=== PATIENT | female | born 1990 | race Caucasian/White ===

== ENCOUNTER → 2017-12-20 20:01 | Outpatient (CLI) | payer OTHER, SELFPAY ==
[2017-12-20 20:53] LABS: HCG Quantitative /Beta subunit < 2.39 mIU/mL
== END ==
PROVIDERS: Family Provider Physician Assistant; PCP Physician Assistant; Visit Provider Physician Assistant
DX: R11.0 Nausea (principal)
CPT/HCPCS: 84702

== ENCOUNTER → 2019-06-21 10:50 | Outpatient (CLI) | payer OTHER, SELFPAY ==
[2019-06-21 11:28] LABS: Influenza A - CEPHEID Flu A NEGATIVE (NEGATIVE); Influenza B - CEPHEID Flu B NEGATIVE (NEGATIVE)
== END ==
LOC: LAB 10:51
PROVIDERS: Family Provider Physician Assistant; PCP Physician Assistant; Visit Provider Physician Assistant
DX: R05 Cough (principal)
CPT/HCPCS: 87502

== ENCOUNTER → 2020-05-13 15:55 | Outpatient (CLI) | payer OTHER, SELFPAY ==
[2020-05-13 16:52] LABS: Influenza A - CEPHEID Flu A NEGATIVE (NEGATIVE); Influenza B - CEPHEID Flu B NEGATIVE (NEGATIVE)
[2020-05-13 18:17] LABS: COVID19 -Nasal RAPID Negative (Negative)
== END ==
PROVIDERS: Family Provider Physician Assistant; PCP Physician Assistant; Visit Provider Physician Assistant
DX: Z20.822 Contact with and (suspected) exposure to COVID-19 (principal); J02.9 Acute pharyngitis, unspecified
CPT/HCPCS: 87070; 87502; 87635

== ENCOUNTER → 2021-04-28 09:31 | Outpatient (CLI) | payer OTHER, SELFPAY ==
[2021-04-28 12:58] LABS: COVID19 -Nasal RAPID Negative (Negative)
== END ==
PROVIDERS: Family Provider Physician Assistant; PCP Physician Assistant; Visit Provider Physician Assistant
DX: Z20.822 Contact with and (suspected) exposure to COVID-19 (principal); J02.9 Acute pharyngitis, unspecified
CPT/HCPCS: 87635

== ENCOUNTER 2021-06-19 00:16 | Emergency (ER) | payer OTHER, SELFPAY ==
[2021-06-19 00:22] VITALS: BP 151/98; PULSE 92; RESP 18; TEMP 36.6; O2SAT 97; BMI 35.6
--- NOTE | 2021-06-19 02:07 | ED_ITS ---
HPI - Wound/Laceration General Chief Complaint: Wound/Laceration Stated Complaint: dog bite right thigh Time Seen by Provider: 06/19/21 02:05 Source: patient Mode of arrival: Ambulatory History of Present Illness HPI narrative: Patient is a 30-year-old female who presents with dog bite to right thigh. She states she was out walking [place] when got bit by a stray dog. She said she was not previously interacting with it. She has significant bites to the right thigh no numbness tingling or weakness but having lots of pain. Her tetanus is not up-to-date. Related Data Home Medications Medication Instructions Recorded Confirmed multivitamin 1 tab PO DAILY 02/11/18 05/13/20 Previous Rx's Medication Instructions Recorded ondansetron 4 mg disintegrating 4 mg PO Q6-8H PRN #30 tab 06/21/19 tablet amoxicillin 875 mg-potassium 1 tab PO Q12H #14 tab 06/19/21 clavulanate 125 mg tablet (Augmentin) hydrocodone 5 mg-acetaminophen 325 1 tab PO Q6H PRN #10 tab 06/19/21 mg tablet Allergies Allergy/AdvReac Type Severity Reaction Status Date / Time ketorolac [From Toradol] AdvReac Intermediate nausea, Verified 06/19/21 00:27 dizzy Review of Systems Review of Systems Narrative: GENERAL: Denies chills,fever HEENT: Denies throat pain RESPIRATORY: Denies dyspnea, cough, wheezing CARDIOVASCULAR: Denies chest pain, palpitations GASTROINTESTINAL: Denies nausea, vomiting MUSCULOSKELETAL: Denies extremity pain, injury SKIN: See HPI NEUROLOGIC: Denies weakness, dizziness, headache, numbness 8 point review of systems is negative except for those stated above and HPI Patient History Medical History (Updated 06/19/21 @ 03:01 by Honey Guerra DO) Pharyngitis Social History Smoking Status: Current every day smoker Smoking Status: Current every day smoker alcohol intake frequency: a few times a week Substance Use Type: marijuana Exam Initial Vital Signs Initial Vital Signs: Vital Signs Temperature 98 F 06/19/21 00:22 Pulse Rate 92 H 06/19/21 00:22 Respiratory Rate 18 06/19/21 00:22 Blood Pressure 151/98 H 06/19/21 00:22 Pulse Oximetry 97 06/19/21 00:22 GENERAL: Well-appearing, well-nourished and in no acute distress. CARDIOVASCULAR: peripheral pulses in tact, cap refill <2 sec RESPIRATORY: No respiratory distress, speaks in full sentences without difficulty EXTREMITIES: Normal range of motion, no clubbing or edema. Neurovascularly intact NEUROLOGICAL: Cranial nerves II through XII grossly intact. Normal gait and speech. SKIN: Multiple puncture wounds on right medial thigh. The largest 4cm with 2 cm gap right medial, the 2nd largest 1cm anterior thigh also with large gap Procedures Laceration Repair Laceration 1: Site: lower extremity Side (If applicable): right Size (cm): 4 Description: linear and contaminated (dog bite) Depth: simple, single layer Local Anesthetic: lidocaine 1% Amount of anesthesia used (mL): 5 Pre-repair: wound explored, irrigated extensively and deep structures intact Skin layer closed with: nylon Size (cm): 4-0 Number of sutures: 3 Laceration 2: Site: lower extremity Side (If applicable): right Size (cm): 2 Description: linear Depth: simple, single layer Local Anesthetic: lidocaine 1% Amount of anesthesia used (mL): 3 Pre-repair: wound explored, irrigated extensively and deep structures intact Skin layer closed with: nylon Size (cm): 4-0 Number of sutures: 1 Technique: simple, interrupted Course Orders Ordered: Discontinued Medications Hydrocodone Bitart/Acetaminophen (Hydrocodone/Acet 5/325 Tablet) 1 tab PO NOW ONE Stop: 06/19/21 02:16 Last Admin: 06/19/21 02:24 Dose: 1 tab Documented by: ROCKY Amoxicillin/Clavulanate Potassium (Amoxicillin/Clav 875/125 Mg) 1 tab PO NOW ONE Stop: 06/19/21 03:02 Last Admin: 06/19/21 03:24 Dose: 1 tab Documented by: ROCKY Diphtheria/Tetanus/Acell Pertussis (Tet,Diph,Pertuss(Acell),Vac/Pf 0.5 Ml Syringe) 0.5 ml IM .ONCE ONE Stop: 06/19/21 02:19 Last Admin: 06/19/21 03:25 Dose: 0.5 ml Documented by: ROCKY Lidocaine HCl (Lidocaine 1% (Pf) 5 Ml) 6 ml SUBCUT NOW ONE Stop: 06/19/21 02:16 Last Admin: 06/19/21 03:35 Dose: 6 ml Documented by: SUZIE Vital Signs Vital signs: Vital Signs - 8 hr 06/19/21 00:22 06/19/21 03:11 Temperature 98 F 98.5 F Pulse Rate 92 H 98 H Respiratory Rate 18 19 Blood Pressure 151/98 H 128/79 Pulse Oximetry 97 99 MDM - Wound/Laceration MDM Narrative Medical decision making narrative: Patient has multiple puncture wounds 1 with quite allergic cap they are sutured and loosely irrigated and she is started on antibiotics Discharge Plan Departure Patient Disposition: Home Clinical Impression: Dog bite Instructions: DI for Animal Bites Activity Restrictions/Additional Instructions: *You have been diagnosed with dog bite *What to do: Expect to have swelling and pain for about 1-2 weeks. Elevate and ice as needed. Use crutches if needed. Please monitor very carefully for any worsening infection. Sutures will need to be removed in about 5-7 days. They replaced loosely. *Continue to take medications as directed Augmentin 875 mg twice a day for 10 days [place] 1 tablet every 6 hours if needed for severe pain Aleve/naproxen 500 mg every 12 hours OR ibuprofen/Motrin 600 mg every 6 hours if needed for [id number] pain *Follow up with your primary care provider in 2-3 days or call [phone] *Return to ER if you should have increasing pain redness numbness tingling fever or any new, worsening or concerning symptoms CONTROLLED SUBSTANCE DISCHARGE (Narcotoic/benzodiazepine/Flexeril/Phenergan) 1. You have been prescribed narcotic medications, it does have acetaminophen/Tylenol/paracetamol in it, DO NOT TAKE MORE THAN 4,00mg in 24 hours of Tylenol. TRAMADOL DOES NOT CONTAIN TYLENOL 2. Please understand that we cannot provide further refills of narcotics, benzodiazepines or controlled substances through the ED and her pain management will need to be through your provider. 3. While on these medications you cannot drive or operate heavy machinery. 4. You cannot sign legal documents or perform any duties such as this. 5. As long as you're taking opiate pain medications he should also be taking a stool softener such as Colace, Dulcolax, MiraLAX or prune juice, to help avoid constipation. Prescriptions: New hydrocodone-acetaminophen 5-325 mg tablet 1 tab PO Q6H PRN (Reason: pain) Qty: 10 0RF amoxicillin-pot clavulanate [Augmentin] 875-125 mg tablet 1 tab PO Q12H Qty: 14 0RF No Action ondansetron 4 mg tablet,disintegrating 4 mg PO Q6-8H PRN (Reason: nausea and vomiting) Qty: 30 0RF multivitamin tablet,chewable 1 tab PO DAILY 0RF Referrals: Мария Kaplan PA-C [Primary Care Provider] - Stand Alone Forms: Work Release Note
[2021-06-19] MEDS: HYDROCODONE/ACET 5/325 TABLET 1 TAB PO (02:24)
[2021-06-19 03:11] VITALS: BP 128/79; PULSE 98; RESP 19; TEMP 36.9; O2SAT 99
[2021-06-19] MEDS: AMOXICILLIN/CLAV 875/125 MG 1 TAB PO (03:24)
[2021-06-19] MEDS: TET,DIPH,PERTUSS(ACELL),VAC/PF 0.5 ML SYRINGE IM (03:25)
[2021-06-19] MEDS: LIDOCAINE 1% (PF) 5 ML 6 ML SUBCUT (03:35)
== END 2021-06-19 03:30 | disposition home or self-care (01) ==
PROVIDERS: Emergency Provider Emergency Medicine; Family Provider Physician Assistant; PCP Physician Assistant
DX: S71.151A Open bite, right thigh, initial encounter (principal); F17.200 Nicotine dependence, unspecified, uncomplicated; W54.0XXA Bitten by dog, initial encounter; Y93.01 Activity, walking, marching and hiking; Z23 Encounter for immunization
CPT/HCPCS: 12002; 90471; 99282; 99284; 90715

== ENCOUNTER 2023-05-13 09:38 | Emergency (ER) | payer OTHER, SELFPAY ==
[2023-05-13 09:41] VITALS: BP 155/97; PULSE 79; RESP 17; TEMP 36.9; O2SAT 95; BMI 40.2
--- NOTE | 2023-05-13 10:09 | PC.NURSE ---
Pt denies loss bowel/bladder. Pt was moving a bench yesterday and shortly after began having left lower back pain. Pt ambulatory,difficulty changing position due to pain.
--- NOTE | 2023-05-13 10:35 | ED.BACK ---
HPI - Back Pain/Injury General Chief Complaint: Back Pain/Injury Stated Complaint: Low back pain Time Seen by Provider: 05/13/23 10:00 Source: patient History of Present Illness HPI Narrative: 32-year-old female presents for 1 day of left-sided lumbar back pain. Patient was lifting boxes and thinks that she may have strained her back. No position is comfortable. Took Motrin once prior to arrival without significant improvement in pain. Denies bowel or bladder incontinence, denies saddle anesthesia. Related Data Home Medications Medication Instructions Recorded Confirmed multivitamin 1 tab PO DAILY 02/11/18 05/13/20 Previous Rx's Medication Instructions Recorded ondansetron 4 mg disintegrating 4 mg PO Q6-8H PRN nausea and 06/21/19 tablet vomiting #30 tabs amoxicillin 875 mg-potassium 1 tab PO Q12H #14 tabs 06/19/21 clavulanate 125 mg tablet (Augmentin) hydrocodone 5 mg-acetaminophen 325 1 tab PO Q6H PRN pain #10 tabs 06/19/21 mg tablet methocarbamol 500 mg tablet 500 mg PO TID #30 tabs 05/13/23 methocarbamol 500 mg tablet 500 mg PO TID #30 tabs 05/13/23 methylprednisolone 4 mg tablets in See Rx Instructions PO .COMPLEX 05/13/23 a dose pack (Medrol ([place])) #21 ea methylprednisolone 4 mg tablets in See Rx Instructions PO .COMPLEX 05/13/23 a dose pack (Medrol ([place])) #21 ea Allergies Allergy/AdvReac Type Severity Reaction Status Date / Time No Known Drug Allergies Allergy Verified 05/13/23 10:39 Review of Systems Review of Systems Narrative: Negative except as noted above Patient History Medical History (Updated 05/13/23 @ 11:45 by Rosy Curran MD) Pharyngitis Social History Smoking Status: Current every day smoker Smoking Status: Current every day smoker tobacco type: vaping alcohol intake frequency: a few times a month Substance Use Type: marijuana Exam Initial Vital Signs Initial Vital Signs: Vital Signs Temperature 98.4 F 05/13/23 09:41 Pulse Rate 79 05/13/23 09:41 Respiratory Rate 17 05/13/23 09:41 Blood Pressure 155/97 H 05/13/23 09:41 Pulse Oximetry 95 05/13/23 09:41 Oxygen Delivery Method Room Air 05/13/23 09:41 Const: Awake, alert, tearful Cardiac: regular rate, regular rhythm RESP: unlabored, clear bilaterally, no wheezing GI: Atraumatic, soft, nontender, nondistended, no rebound, no guarding MSK back: No midline tenderness, left paraspinal tenderness to deep palpation Skin: Warm, Dry, intact, no rashes Neuro: AO x3, CN II-XII grossly intact, moves all extremities, gait normal Psych: affect normal, mood normal, not suicidal, not homicidal Course Orders Ordered: Discontinued Medications Acetaminophen (Acetaminophen 325 Mg Tablet) 975 mg PO NOW ONE Stop: 05/13/23 10:35 Last Admin: 05/13/23 10:40 Dose: 975 mg Documented By: UMESH Dexamethasone (Dexamethasone 10 Mg/Ml Vial) 10 mg IM NOW ONE Stop: 05/13/23 10:35 Last Admin: 05/13/23 10:40 Dose: 10 mg Documented By: UMESH Ketorolac Tromethamine (Ketorolac 30 Mg/Ml Vial) 30 mg IM NOW ONE Stop: 05/13/23 10:35 Last Admin: 05/13/23 10:40 Dose: 30 mg Documented By: UMESH Lidocaine (Lidocaine 5% Patch) 1 each TOP NOW ONE Stop: 05/13/23 10:35 Last Admin: 05/13/23 10:40 Dose: 1 each Documented By: UMESH Methocarbamol (Methocarbamol 500 Mg Tablet) 1,000 mg PO NOW ONE Stop: 05/13/23 10:35 Last Admin: 05/13/23 10:40 Dose: 1,000 mg Documented By: UMESH Vital Signs Vital signs: Vital Signs - 8 hr 05/13/23 09:41 05/13/23 11:03 Temperature 98.4 F Pulse Rate 79 73 Respiratory Rate 17 16 Blood Pressure 155/97 H 138/84 Pulse Oximetry 95 96 Oxygen Delivery Method Room Air Room Air MDM - Back Pain/Injury MDM Narrative Medical decision making narrative: Uncomfortable but nontoxic patient presenting for lumbar back pain after lifting. No signs or symptoms of cauda equina, no midline tenderness, no indication for imaging. Patient was given nonnarcotic medications with moderate improvement in pain. Patient was counseled on back care tips, anticipated course of recovery for lumbar back strain. Nonnarcotic pain medication sent to pharmacy of choice. PCP follow up advised Discharge Plan Departure Patient Disposition: Home Clinical Impression: Back spasm Instructions: DI for Back Spasm Activity Restrictions/Additional Instructions: Alternate tylenol and motrin every 3-4 hours as needed for pain. Use gentle stretching exercises for additional pain relief. Use the medications as directed. Follow up with your primary care physician Prescriptions: New methocarbamol 500 mg tablet 500 mg PO TID Qty: 30 0RF methylprednisolone [Medrol ([place])] 4 mg tablets,dose pack See Rx Instructions .ROUTE .COMPLEX Qty: 21 0RF Rx Instructions: orally per package directions methocarbamol 500 mg tablet 500 mg PO TID Qty: 30 0RF methylprednisolone [Medrol ([place])] 4 mg tablets,dose pack See Rx Instructions .ROUTE .COMPLEX Qty: 21 0RF Rx Instructions: orally per package directions No Action ondansetron 4 mg tablet,disintegrating 4 mg PO Q6-8H PRN (Reason: nausea and vomiting) Qty: 30 0RF multivitamin tablet,chewable 1 tab PO DAILY hydrocodone-acetaminophen 5-325 mg tablet 1 tab PO Q6H PRN (Reason: pain) Qty: 10 0RF amoxicillin-pot clavulanate [Augmentin] 875-125 mg tablet 1 tab PO Q12H Qty: 14 0RF Referrals: Мария Kaplan PA-C [Primary Care Provider] - Stand Alone Forms: Patient Portal/API
[2023-05-13] MEDS: DEXAMETHASONE 10 MG/ML VIAL IM (10:40)
[2023-05-13] MEDS: KETOROLAC 30 MG/ML VIAL IM (10:40)
[2023-05-13] MEDS: LIDOCAINE 5% PATCH 1 EACH TOP (10:40)
[2023-05-13] MEDS: methocarbamoL 500 MG TABLET 1000 MG PO (10:40)
[2023-05-13] MEDS: ACETAMINOPHEN 325 MG TABLET 975 MG PO (10:40)
[2023-05-13 11:03] VITALS: BP 138/84; PULSE 73; RESP 16; O2SAT 96
== END 2023-05-13 12:03 | disposition home or self-care (01) ==
PROVIDERS: Emergency Provider Emergency Medicine; Family Provider Physician Assistant; PCP Physician Assistant
DX: M62.830 Muscle spasm of back (principal)
CPT/HCPCS: 96372; 99283; J1100; J1885

== ENCOUNTER 2023-09-03 14:03 | Emergency (ER) | payer OTHER, SELFPAY ==
[2023-09-03 14:24] VITALS: PULSE 64; RESP 18; TEMP 36.4; O2SAT 98; BMI 36.6
[2023-09-03 14:29] VITALS: BP 136/89
--- NOTE | 2023-09-03 14:54 | DI.US.S_ITS ---
PROCEDURE: US PELVIC COMPLETE INDICATIONS: heavy vag bleeding, RLQ abd pain into back TECHNIQUE: Real-time scanning was performed of the pelvic organs, with image documentation. Additional endovaginal scanning was necessary due to incomplete visualization of the adnexal and endometrial structures by transabdominal scanning. COMPARISON: None. FINDINGS: Uterus: Uterus is anteverted and normal in size at 7.1 x 3.3 x 3.2 cm. The myometrium is homogeneous. The endometrium measures 6.3 mm combined thickness. Ovaries: The right ovary measures 2.0 x 2.2 x 2.2 cm, with a calculated ovarian volume of 4.9 cc. The left ovary measures 2.4 x 2.6 x 2.3 cm, with a calculated ovarian volume of 7.3 cc. The ovaries have a normal sonographic appearance. Less than 12 follicles can be seen in each ovary. No adnexal masses are seen. Other: No pathologic free abdominal or pelvic fluid. IMPRESSION: Unremarkable exam. We strive to produce accurate, complete, and clear reports of imaging services. To assist us in improving patient care, this report was composed using standard report templates and voice recognition software. Therefore, it may contain abnormal punctuation, insertions and/or omissions. Occasional wrong-word or sound-alike substitutions may occur. Though we review the report and make efforts to correct it, we do recommend that the report be read carefully in proper context to recognize any text inaccuracies. Dictated by: Sonia Boyer M.D. on 09/03/2023 at 16:09 Approved by: Sonia Boyer M.D. on 09/03/2023 at 16:17
[2023-09-03 14:55] LABS: Appearance Urine UA SL CLOUDY; Bilirubin Urine UA 1+ (NEGATIVE); Color Urine UA RED; Glucose Urine UA NEGATIVE (Negative); Ketones Urine UA TRACE (NEGATIVE); Leukocyte Esterase Urine UA NEGATIVE (NEGATIVE); Nitrite Urine UA NEGATIVE (Negative); Occult Blood Urine UA 3+ (Negative); Protein Urine UA 2+ (Negative); Specific Gravity Urine UA >=1.030 (1.000-1.035)
[2023-09-03 15:01] LABS: Bacteria Urine None Seen; Culture Indicated Urine Cult Not Indicated; Ictotest Urine Negative (Negative); RBC Urine 30-100/HPF (0-5/HPF); Squamous Epithelial Cell Urine 0-1 /HPF (0-5/HPF); Urine Volume 10mL (spun); WBC Urine 1-5/HPF (0-5/HPF)
[2023-09-03 15:44] LABS: HCG Quantitative /Beta subunit < 2.4 mIU/mL
--- NOTE | 2023-09-03 16:18 | ED_ITS ---
HPI - Abdominal Pain General Chief Complaint: Vaginal Bleeding Stated Complaint: heavy vaginal bleeding, abd pain Time Seen by Provider: 09/03/23 16:13 Source: patient Mode of arrival: Ambulatory History of Present Illness HPI narrative: 33-year-old female presents for right lower quadrant/pelvic pain. Patient states she was supposed to have a normal menstrual cycle on 08/13 but only had light spotting. Pain is sharp, radiates into her back and lower quadrant. No medications taken at home prior to arrival Related Data Home Medications Medication Instructions Recorded Confirmed multivitamin 1 tab PO DAILY 02/11/18 05/13/20 Previous Rx's Medication Instructions Recorded ondansetron 4 mg disintegrating 4 mg PO Q6-8H PRN nausea and 06/21/19 tablet vomiting #30 tabs amoxicillin 875 mg-potassium 1 tab PO Q12H #14 tabs 06/19/21 clavulanate 125 mg tablet (Augmentin) hydrocodone 5 mg-acetaminophen 325 1 tab PO Q6H PRN pain #10 tabs 06/19/21 mg tablet methocarbamol 500 mg tablet 500 mg PO TID #30 tabs 05/13/23 methocarbamol 500 mg tablet 500 mg PO TID #30 tabs 05/13/23 methylprednisolone 4 mg tablets in See Rx Instructions PO .COMPLEX 05/13/23 a dose pack (Medrol ([place])) #21 ea methylprednisolone 4 mg tablets in See Rx Instructions PO .COMPLEX 05/13/23 a dose pack (Medrol ([place])) #21 ea Allergies Allergy/AdvReac Type Severity Reaction Status Date / Time No Known Drug Allergies Allergy Verified 09/03/23 14:28 Review of Systems Review of Systems Narrative: See HPI Patient History Medical History (Updated 09/03/23 @ 17:26 by Rosy Curran MD) Pharyngitis Social History Smoking Status: Current every day smoker Smoking Status: Current every day smoker tobacco type: vaping alcohol intake frequency: a few times a month Substance Use Type: marijuana Exam Initial Vital Signs Initial Vital Signs: Vital Signs Temperature 97.6 F 09/03/23 14:24 Pulse Rate 64 09/03/23 14:24 Respiratory Rate 18 09/03/23 14:24 Pulse Oximetry 98 09/03/23 14:24 Oxygen Delivery Method Room Air 09/03/23 14:24 Const: Awake, alert, no acute distress, nontoxic appearing Cardiac: regular rate, regular rhythm RESP: unlabored, clear bilaterally, no wheezing GI: Soft, right lower quadrant tenderness to deep palpation without rebound or guarding Skin: Warm, Dry, intact, no rashes Neuro: AO x3, CN II-XII grossly intact, moves all extremities Course Orders Ordered: Discontinued Medications Morphine Sulfate (Morphine 4 Mg/Ml Inj) 4 mg IV NOW ONE Stop: 09/03/23 16:19 Last Admin: 09/03/23 17:03 Dose: 4 mg Documented By: KEVYN Vital Signs Vital signs: Vital Signs - 8 hr 09/03/23 14:24 09/03/23 14:29 Temperature 97.6 F Pulse Rate 64 Respiratory Rate 18 Blood Pressure 136/89 Pulse Oximetry 98 Oxygen Delivery Method Room Air MDM - Abdominal Pain Differential Diagnosis Differential diagnosis: Likely abdominal pain, acute appendicitis and calculus of kidney Lab Data 09/03/23 15:06 09/03/23 15:06 Labs: Lab Results 09/03/23 09/03/23 Range/Units 14:40 15:06 WBC 9.6 (4.5-11.0) X10^3/uL RBC 4.11 (4.0-5.2) X10^6/uL Hgb 14.2 (12.0-16.0) g/dL Hct 41.1 (36-46) % MCV 100.2 H (80-100) fL MCH 34.6 H (26-34) PG MCHC 34.5 (30-36) % RDW 13.2 (11.6-14.8) % Plt Count 276 (150-400) X10^3/uL Neut % (Auto) 71.6 (50-75) % Lymph % (Auto) 21.4 L (25-40) % [place] % (Auto) 6.3 (3-14) % Eos % (Auto) 0.4 L (2-4) % Baso % (Auto) 0.3 (0-2) % Neut # (Auto) 6900 (5401-8118) /uL Lymph # (Auto) 2000 (3668-6830) /uL [place] # (Auto) 600 (0-900) /uL Eos # (Auto) 0 (0-450) /uL Baso # (Auto) 0 (0-100) /uL Sodium 141 (137-145) mmol/L Potassium 4.3 (3.4-5.1) mmol/L Chloride 107 (98-107) mmol/L Carbon Dioxide 23 (22-32) mmol/L BUN 14 (7-17) mg/dL Creatinine 0.98 (0.52-1.04) mg/dL Estimated GFR > 60 (>60) mL/min BUN/Creatinine Ratio 14.3 (6-22) Glucose 101 H (70-100) mg/dL Calcium 9.4 (8.4-10.2) mg/dL Total Bilirubin 0.6 (0.2-1.3) mg/dL AST 56 H (14-36) IU/L ALT 125 H (<35) IU/L Alkaline Phosphatase 50 (38-126) U/L Total Protein 8.3 H (6.3-8.2) g/dL Albumin 4.8 (3.5-5.0) g/dL Globulin 3.5 (1.7-4.1) g/dL Albumin/Globulin Ratio 1.4 (1.0-2.8) HCG, Quant < 2.4 mIU/mL Urine Color Red Urine Appearance Sl cloudy Urine pH 6.0 (4.5-8.0) Ur Specific [place] >=1.030 H (1.000-1.035) Urine Protein 2+ H (Negative) Urine Glucose (UA) Negative (Negative) g/dL Urine Ketones Trace H (NEGATIVE) Urine Occult Blood 3+ H (Negative) Urine Nitrate Negative (Negative) Urine Bilirubin 1+ H (NEGATIVE) Ur Bilirubin Confirm Negative (Negative) Urine Urobilinogen 1.0 (0.2) E.U./dL Ur Leukocyte Esterase Negative (NEGATIVE) Urine RBC 30-100/hpf H (0-5/HPF) Urine WBC 1-5/hpf (0-5/HPF) Ur Squamous Epith Cells 0-1 /hpf (0-5/HPF) Urine Bacteria None seen (None) Ur Culture Indicated? Cult not indicated Vol Urine Centrifuged 10ml (spun) Point of care testing: Point of Care Testing Test Results Negative Imaging Data US - BOAT DRIVER: Radiologist's Impression: PROCEDURE: US PELVIC COMPLETE INDICATIONS: heavy vag bleeding, RLQ abd pain into back TECHNIQUE: Real-time scanning was performed of the pelvic organs, with image documentation. Additional endovaginal scanning was necessary due to incomplete visualization of the adnexal and endometrial structures by transabdominal scanning. COMPARISON: None. FINDINGS: Uterus: Uterus is anteverted and normal in size at 7.1 x 3.3 x 3.2 cm. The myometrium is homogeneous. The endometrium measures 6.3 mm combined thickness. Ovaries: The right ovary measures 2.0 x 2.2 x 2.2 cm, with a calculated ovarian volume of 4.9 cc. The left ovary measures 2.4 x 2.6 x 2.3 cm, with a calculated ovarian volume of 7.3 cc. The ovaries have a normal sonographic appearance. Less than 12 follicles can be seen in each ovary. No adnexal masses are seen. Other: No pathologic free abdominal or pelvic fluid. IMPRESSION: Unremarkable exam. We strive to produce accurate, complete, and clear reports of imaging services. To assist us in improving patient care, this report was composed using standard report templates and voice recognition software. Therefore, it may contain abnormal punctuation, insertions and/or omissions. Occasional wrong-word or sound-alike substitutions may occur. Though we review the report and make efforts to correct it, we do recommend that the report be read carefully in proper context to recognize any text inaccuracies. Dictated by: Sonia Boyer M.D. on 09/03/2023 at 16:09 Approved by: Sonia Boyer M.D. on 09/03/2023 at 16:17 CT scan - abdomen/pelvis: Radiologist's Impression: PROCEDURE: CT ABDOMEN PELVIS W CON INDICATIONS: RLQ ABD PAIN TECHNIQUE: After the administration of intravenous contrast, axial sections acquired from the lung bases to the pubic symphysis. Coronal and sagittal reformats were performed. For radiation dose reduction, the following was used: automated exposure control, adjustment of mA and/or kV according to patient size. COMPARISON: None. FINDINGS: Image quality: Diagnostic. Lower Chest: No significant findings. ABDOMEN: Liver: No solid mass. Focal fatty infiltration at the falciform ligament. Gallbladder: No radiopaque gallstones or wall thickening. Biliary ducts: No biliary dilation. Pancreas: No ductal dilation. Spleen: Size is within normal limits. Adrenal Glands: No adrenal nodules. Kidneys and Ureters: No hydronephrosis. No solid mass. No complex renal cystic lesion which requires follow up. Stomach and Bowel: Normal colonic caliber, without significant wall thickening. Normal appendix. Peritoneum: No abnormal intraperitoneal fluid. No free air. Ventral Wall: No significant ventral hernia. Abdominal Nodes: No retroperitoneal or mesenteric adenopathy by size criteria. Vessels: Aorta and inferior vena cava are normal in size. PELVIS: Pelvic Organs: Anteverted uterus. Tampon in the vagina. No free fluid. Bladder: No bladder wall thickening, accounting for underdistention. No stone. Pelvic Nodes: No enlarged lymph nodes. Miscellaneous: No inguinal hernias are seen. Bones: No aggressive osseous abnormality. IMPRESSION: No acute abnormality identified. No free fluid. Normal appendix. Dictated by: Richard Connell M.D. on 09/03/2023 at 17:05 Approved by: Richard Connell M.D. on 09/03/2023 at 17:[address] [facility] Narrative Medical decision making narrative: Well-appearing patient with a right-sided lower quadrant pain. test negative. Laboratory work is reviewed, WBC count 9.6, hemoglobin 14.2, platelet count 276, sodium 141, potassium 4.3, creatinine 0.98, AST 56, ALT 125, alk phos 50, T bili 0.6, no priors for comparison. Ultrasound and CT negative for acute findings. Patient counseled to take Tylenol and ibuprofen as needed for pain, to follow up with your primary care physician if she continues to experience discomfort. Discharge Plan Departure Patient Disposition: Home Clinical Impression: Abdominal pain Qualifiers: Abdominal location: right lower quadrant Qualified Code(s): R10.31 - Right lower quadrant pain Instructions: DI for Abdominal Pain-Adult Activity Restrictions/Additional Instructions: Your ultrasound and CT did not show any abnormal findings. Your ovaries are normal size and your appendix is not inflamed. Although you has been bleeding heavily your hemoglobin is normal and you are not in danger of needing a transfusion. If you continued to have pelvic pain I recommend following up with either your primary care doctor or OBGYN. Take Tylenol and ibuprofen as needed for pain. Prescriptions: No Action ondansetron 4 mg tablet,disintegrating 4 mg PO Q6-8H PRN (Reason: nausea and vomiting) Qty: 30 0RF multivitamin tablet,chewable 1 tab PO DAILY hydrocodone-acetaminophen 5-325 mg tablet 1 tab PO Q6H PRN (Reason: pain) Qty: 10 0RF amoxicillin-pot clavulanate [Augmentin] 875-125 mg tablet 1 tab PO Q12H Qty: 14 0RF methocarbamol 500 mg tablet 500 mg PO TID Qty: 30 0RF methylprednisolone [Medrol ([place])] 4 mg tablets,dose pack See Rx Instructions .ROUTE .COMPLEX Qty: 21 0RF Rx Instructions: orally per package directions methocarbamol 500 mg tablet 500 mg PO TID Qty: 30 0RF methylprednisolone [Medrol ([place])] 4 mg tablets,dose pack See Rx Instructions .ROUTE .COMPLEX Qty: 21 0RF Rx Instructions: orally per package directions Referrals: Miscellaneous,Doctor, MD [Primary Care Provider] - Stand Alone Forms: Patient Portal/API
[2023-09-03 16:49] LABS: Add Manual Diff / Slide Review NO; Basophils Absolute Auto 0 /uL (0-100); Basophils Percent Auto 0.3 % (0-2); Eosinophils Absolute Auto 0 /uL (0-450); Eosinophils Percent Auto 0.4 % (2-4); Hematocrit 41.1 % (36-46); Hemoglobin 14.2 g/dL (12.0-16.0); Lymphocytes Absolute Auto 2000 /uL (1100-4500); Lymphocytes Percent Auto 21.4 % (25-40); Mean Corpuscular HGB Conc 34.5 % (30-36); Mean Corpuscular Hemoglobin 34.6 PG (26-34); Mean Corpuscular Volume 100.2 fL (80-100); Monocytes Absolute Auto 600 /uL (0-900); Monocytes Percent Auto 6.3 % (3-14); Neutrophils Absolute Auto 6900 /uL (1500-7000); Neutrophils Percent Auto 71.6 % (50-75); Platelet Count 276 X10^3/uL (150-400); Red Blood Cell Count 4.11 X10^6/uL (4.0-5.2); Red Cell Distribution Width 13.2 % (11.6-14.8); White Blood Cell Count 9.6 X10^3/uL (4.5-11.0)
[2023-09-03 17:01] LABS: Alanine Aminotransferase 125 IU/L (<35); Albumin 4.8 g/dL (3.5-5.0); Albumin Globulin Ratio 1.4 (1.0-2.8); Alkaline Phosphatase 50 U/L (38-126); Aspartate Aminotransferase 56 IU/L (14-36); BUN Creatinine Ratio 14.3 (6-22); Bilirubin Total 0.6 mg/dL (0.2-1.3); Blood Urea Nitrogen 14 mg/dL (7-17); Calcium 9.4 mg/dL (8.4-10.2); Carbon Dioxide 23 mmol/L (22-32); Chloride 107 mmol/L (98-107); Estimated Glomerular Filt Rate > 60 mL/min (>60); Globulin 3.5 g/dL (1.7-4.1); Glucose 101 mg/dL (70-100); HEMOLYSIS < 15 (0-50); Potassium 4.3 mmol/L (3.4-5.1); Sodium 141 mmol/L (137-145); Total Protein 8.3 g/dL (6.3-8.2)
[2023-09-03] MEDS: MORPHINE 4 MG/ML INJ IV (17:03)
== END 2023-09-03 17:40 | disposition home or self-care (01) ==
PROVIDERS: Emergency Medicine; Emergency Provider Emergency Medicine; Family Provider Physician Assistant
DX: R10.31 Right lower quadrant pain (principal)
CPT/HCPCS: 36415; 74177; 76856; 80053; 81001; 81025; 84702; 85025; 96374; 99284; J2270; Q9967

== ENCOUNTER → 2025-01-18 15:01 | Outpatient (CLI) | payer OTHER, SELFPAY ==
[2025-01-18 15:33] LABS: Add Manual Diff / Slide Review NO; Hematocrit 41.8 % (36-46); Hemoglobin 14.4 g/dL (12.0-16.0); Lymphocytes Absolute Auto 1400 /uL (1100-4500); Mean Corpuscular HGB Conc 34.4 % (30-36); Mean Corpuscular Hemoglobin 34.0 PG (26-34); Mean Corpuscular Volume 98.9 fL (80-100); Platelet Count 181 X10^3/uL (150-400)
[2025-01-18 15:41] LABS: Hemoglobin A1C% w Est Avg Glu 5.1 % (4.0-6.0)
[2025-01-18 17:06] LABS: Alanine Aminotransferase 204 IU/L (<35); Albumin 4.5 g/dL (3.5-5.0); Albumin Globulin Ratio 1.5 (1.0-2.8); Alkaline Phosphatase 49 U/L (38-126); Blood Urea Nitrogen 14 mg/dL (7-17); Calcium 9.2 mg/dL (8.4-10.2); Carbon Dioxide 28 mmol/L (22-32); Chloride 104 mmol/L (98-107); Estimated Glomerular Filt Rate > 60 mL/min (>60); Globulin 3.1 g/dL (1.7-4.1); Glucose 176 mg/dL (70-99); HEMOLYSIS < 15 (0-50); Potassium 3.8 mmol/L (3.4-5.1); Sodium 138 mmol/L (137-145); Total Protein 7.6 g/dL (6.3-8.2)
[2025-01-18 17:20] LABS: Thyroid Stimulating Hormone 0.872 uIU/mL (0.47-4.68)
[2025-01-18 17:22] LABS: Follicle Stimulating Hormone 3.63 mIU/mL
[2025-01-18 17:23] LABS: Vitamin D 25 Hydroxy (D3) 22.2 ng/mL (30.0-100.0)
[2025-01-18 17:37] LABS: Estradiol, Total 88.6 pg/mL
== END ==
PROVIDERS: Family Provider Physician Assistant; PCP Nurse Practitioner Family; Referring Provider Nurse Practitioner Family; Visit Provider Nurse Practitioner Family
DX: E66.9 Obesity, unspecified (principal); Z13.1 Encounter for screening for diabetes mellitus
CPT/HCPCS: 36415; 80053; 82306; 82397; 82670; 83001; 83036; 84443; 85025

== ENCOUNTER → 2025-01-23 13:26 | Outpatient (CLI) | payer OTHER, SELFPAY ==
--- NOTE | 2025-01-23 13:26 | DI.US.S_ITS ---
PROCEDURE: US PELVIC COMPLETE INDICATIONS: INFERTILITY TECHNIQUE: Real-time scanning was performed of the pelvic organs, with image documentation. Additional endovaginal scanning was necessary due to incomplete visualization of the adnexal and endometrial structures by transabdominal scanning. COMPARISON: [facility], US, US PELVIC COMPLETE, 09/03/2023, 15:14. FINDINGS: Uterus: Uterus is anteverted and normal in size at 5.8 x 3.6 x 3.3 cm. The myometrium is heterogeneous. The endometrium measures 8.8 mm combined thickness. Trace anechoic fluid within the cervix. Ovaries: The right ovary measures 2.7 x 2.4 x 1.5 cm, with a calculated ovarian volume of 5.1 cc. The left ovary measures 3.4 x 3.0 x 2.6 cm, with a calculated ovarian volume of 13.8 cc. Dominant left ovarian follicle measuring 2.3 cm. The ovaries have a normal sonographic appearance. Greater than 12 follicles can be seen in each ovary. No adnexal masses are seen. Other: No pathologic free abdominal or pelvic fluid. IMPRESSION: Greater than 12 follicular cysts bilaterally which can be associated with polycystic ovarian morphology, recommend clinical correlation. We strive to produce accurate, complete, and clear reports of imaging services. To assist us in improving patient care, this report was composed using standard report templates and voice recognition software. Therefore, it may contain abnormal punctuation, insertions and/or omissions. Occasional wrong-word or sound-alike substitutions may occur. Though we review the report and make efforts to correct it, we do recommend that the report be read carefully in proper context to recognize any text inaccuracies. Dictated by: Federico Ervin M.D. on 01/23/2025 at 15:47 Approved by: Federico Ervin M.D. on 01/23/2025 at 15:54
== END ==
LOC: US 13:26
PROVIDERS: Family Provider Physician Assistant; PCP Nurse Practitioner Family; Referring Provider Nurse Practitioner Family; Visit Provider Nurse Practitioner Family
DX: Z31.69 Encounter for other general counseling and advice on procreation (principal); N97.9 Female infertility, unspecified
CPT/HCPCS: 76830; 76856

== ENCOUNTER → 2025-04-06 12:19 | Outpatient (CLI) | payer OTHER, SELFPAY ==
[2025-04-06 12:59] LABS: HEMOLYSIS < 15 (0-50); Iron 122 ug/dL (37-170)
[2025-04-06 13:00] LABS: Alanine Aminotransferase 171 IU/L (<35); Albumin 4.9 g/dL (3.5-5.0); Albumin Globulin Ratio 1.4 (1.0-2.8); Alkaline Phosphatase 46 U/L (38-126); Globulin 3.6 g/dL (1.7-4.1); HEMOLYSIS < 15 (0-50); Total Protein 8.5 g/dL (6.3-8.2)
[2025-04-06 13:09] LABS: Percent Iron Saturation 29 % (15-50); Total Iron Binding Capacity 424 ug/dL (265-497); Transferrin 368 mg/dL (206-381)
[2025-04-07 16:25] LABS: Hepatitis B Surface Antigen NEGATIVE s/c (NEGATIVE)
[2025-04-07 16:40] LABS: Hep C Virus Ab w/Reflex Quant NEGATIVE s/c (NEGATIVE)
== END ==
PROVIDERS: Obstetrics & Gynecology; Family Provider Physician Assistant; PCP Nurse Practitioner Family; Referring Provider Nurse Practitioner Family; Visit Provider Nurse Practitioner Family
DX: N92.6 Irregular menstruation, unspecified (principal); R74.8 Abnormal levels of other serum enzymes
CPT/HCPCS: 36415; 80076; 82784; 83516; 83540; 83550; 84144; 84146; 86038; 86803; 87340